=== PATIENT | male | born 1955 | race Caucasian/White ===

== ENCOUNTER 2019-01-21 15:47 | Inpatient (IN) | payer BC ==
--- NOTE | 2019-01-21 16:46 | EDM.PDOC ---
ED HPI GENERAL MEDICAL PROBLEM - General Chief Complaint: Back Pain or Injury Stated Complaint: back pain Time Seen by Provider: 01/21/19 16:14 Source of Information: Reports: Patient History Limitations: Reports: No Limitations - History of Present Illness INITIAL COMMENTS - FREE TEXT/NARRATIVE: Artemio is a 64 yo male who presents to the ED via private vehicle. He is brought in by his as he is unable to sit in a vehicle. He was able to get himself out of the back of the vehicle as he was laying down. He has been dealing with severe back pain since beginning of December. He has no known cause of event. Pain does radiate to right lateral and anterior thigh. Pain is significantly worse upon ambulation. He was initially evaluated by Dr. Zepeda on 01/06/19. Dr. Zepeda did get x-rays of right hip and femur. There was some concern of trochanteric bursitis. Dr. Zepeda did inject the trochanteric bursa without any relief of symptoms. Dr. Zepeda did set up with Dr. Dave in [place]. He underwent an MRI of the hip with hip injection given without any relief. Patient did go to ER at [facility] in [place] where he underwent an MRI of the back. MRI did show severe neuroforaminal stenosis and slipped disc. He underwent an injection in low back without any relief. He states the pain is progressively getting worse and find it very difficult to ambulate. He denies any bowel or bladder dysfunction. Denies any loss of strength. He states he currently is taking Flexeril which does given him minimal relief. He has tried Hydrocodone and Oxycodone without any relief in symptoms. He does admit when he was in the ER in [place] they did give him Valium and Dilaudid which did help. Duration: Getting Worse Location: Reports: Back Associated Symptoms: Reports: No Other Symptoms. Denies: Weakness Lower Back Pain Score (Numeric/FACES): 10 - Related Data Allergies Allergy/AdvReac Type Severity Reaction Status Date / Time No Known Allergies Allergy Verified 01/21/19 15:53 Home Meds: Home Meds Cholecalciferol (Vitamin D3) [Vitamin D] 2,000 unit PO BID 06/18/14 [History] Clotrimazole/Betamethasone Dip [Lotrisone Cream] 1 applic TOP TID PRN 06/18/14 [ History] Rosuvastatin [Crestor] 40 mg PO DAILY 06/18/14 [History] Aspirin 81 mg PO DAILY 01/21/19 [History] Calcium Carb/Mag Ox/Zinc Gluc [Gtjjshw-Sakhsgunz-Zjrt] 1 tab PO BEDTIME [History] Cyclobenzaprine [Flexeril] 10 mg PO TID PRN 01/21/19 [History] Folic Acid 1 mg PO DAILY 01/21/19 [History] Gabapentin [Neurontin] 100 mg PO TID 01/21/19 [History] Levothyroxine 75 mcg PO DAILY 01/21/19 [History] Multivitamin [Multivitamins] 1 tab PO BEDTIME 01/21/19 [History] Naproxen Sodium [Aleve] 220 - 440 mg PO Q6H PRN 01/21/19 [History] Ubidecarenone [Coenzyme Q-10] 75 mg PO DAILY 01/21/19 [History] carBAMazepine [Carbamazepine ER] 400 mg PO BID 01/21/19 [History] oxyCODONE HCl/Acetaminophen [Endocet 10-325 mg Tablet] 1 tab PO Q4H PRN [History] Past Medical History Cardiovascular History: Reports: High Cholesterol Gastrointestinal History: Reports: None Genitourinary History: Reports: Renal Calculus Musculoskeletal History: Reports: Osteoarthritis, Other (See Below) Other Musculoskeletal History: herniated lumbar disc Neurological History: Reports: Other (See Below) Other Neuro History: numbness to right thigh - Past Surgical History HEENT Surgical History: Reports: Other (See Below) Other HEENT Surgeries/Procedures: cornea transplant Cardiovascular Surgical History: Reports: None GI Surgical History: Reports: Appendectomy Male Surgical History: Reports: Ureteral Stent Neurological Surgical History: Reports: None Musculoskeletal Surgical History: Reports: Hip Replacement Social & Family History - Family History Family Medical History: Noncontributory - Tobacco Use Smoking Status *Q: Never Smoker Second Hand Smoke Exposure: No - Caffeine Use Caffeine Use: Reports: None - Recreational Drug Use Recreational Drug Use: No ED ROS GENERAL - Review of Systems Review Of Systems: ROS reveals no pertinent complaints other than HPI. ED EXAM,LOWER BACK PAIN/INJURY - Physical Exam Exam: See Below Exam Limited By: No Limitations General Appearance: Alert, Mild Distress (patient is lying flat on ED bed) Ears: Normal External Exam, Hearing Grossly Normal Nose: Normal Inspection, No Blood Throat/Mouth: Normal Inspection, Normal Oropharynx, Normal Voice, No Airway Compromise Head: Atraumatic, Normocephalic Neck: Normal Inspection, Supple Respiratory/Chest: No Respiratory Distress, Lungs Clear, Normal Breath Sounds, No Accessory Muscle Use Cardiovascular: Normal Peripheral Pulses, Regular Rate, Rhythm, No Edema, No Murmur GI/Abdominal: Normal Bowel Sounds, Soft, Non-Tender, No Organomegaly, No Distention, No Abnormal Bruit, No Mass Back Exam: Decreased Range of Motion, Muscle Spasm, Paraspinal Tenderness. No: CVA Tenderness (L), CVA Tenderness (R) Extremities: Normal Inspection, Normal Range of Motion, Non-Tender, No Pedal Edema, Other (increased discomfort with flexion of right hip agains resistance. ) Neurological: Alert, Normal Dorsiflexion, CN II-XII Intact, Normal Plantar Flexion, Normal Reflexes, Difficulty Walking. No: Straight Leg Raise (R), Saddle Anesthesia Psychiatric: Normal Affect, Normal Mood Skin Exam: Warm, Dry, Intact, Normal Color, No Rash Course - Vital Signs Last Recorded V/S: Last Vital Signs Temp 97.8 F 01/21/19 15:47 Pulse 71 01/21/19 15:47 Resp 20 01/21/19 15:47 BP 122/77 01/21/19 15:47 Pulse Ox 98 01/21/19 15:47 Departure - Departure Time of Disposition: 17:04 Disposition: Refer to Observation Clinical Impression: Neuroforaminal stenosis of lumbar spine, Herniated lumbar intervertebral disc - Discharge Information Referrals: Basil Zepeda MD [Primary Care Provider] - Forms: ED Department Discharge - Problem List & Annotations (1) Herniated lumbar intervertebral disc SNOMED Code(s): 759039602 Code(s): M51.26 - OTHER INTERVERTEBRAL DISC DISPLACEMENT, LUMBAR REGION Status: Acute Current Visit: Yes (2) Neuroforaminal stenosis of lumbar spine SNOMED Code(s): 128565870866, 238806499062 Code(s): M99.83 - OTHER BIOMECHANICAL LESIONS OF LUMBAR REGION Status: Acute Current Visit: Yes - Assessment/Plan Admission H&P: Please use this note as an admission H&P Plan: Consulted with Dr. Zepeda in regards to Artemio's condition. Will admit to Dr. Zepeda' s services under observation for pain control. Will start IV Solu Medrol, IV Toradol and IV Norflex. Discussed with Artemio'katie we will look into referral to neurosurgery as well. He would like to go to [place] if at all possible. He is hoping something can be done soon as he doesn't want to wait any longer.
[2019-01-21] MEDS ORDERED: Ketorolac 30 MG/ML SDV IV PRN (17:28)
[2019-01-21] MEDS ORDERED: oxyCODONE 5 MG Tab PO PRN (17:45)
[2019-01-21] MEDS ORDERED: Acetaminophen/oxyCODONE 325-5 MG Tab PO PRN (17:45)
[2019-01-21] MEDS: HYDROmorphone 1 MG/ML Syringe IVPUSH PRN ×2 (18:36→22:11)
[2019-01-21] MEDS: carBAMazepine 200 MG Tab PO SCH (19:38)
[2019-01-21] MEDS: Enoxaparin 40 MG/0.4 ML Syringe SUBCUT SCH (19:38)
[2019-01-21] MEDS: methylPREDNISolone Sodium Succinate 125 MG/2 ML SDV IVPUSH SCH (19:38)
[2019-01-21] MEDS: GABAPENTIN 100 MG PO SCH (19:50)
[2019-01-21] MEDS ORDERED: Gabapentin 100 MG Cap PO SCH (20:00)
[2019-01-22] MEDS: HYDROmorphone 1 MG/ML Syringe IVPUSH PRN ×7 (01:58→22:55)
[2019-01-22] MEDS: GABAPENTIN 100 MG PO SCH ×3 (08:40→19:58)
[2019-01-22] MEDS: methylPREDNISolone Sodium Succinate 125 MG/2 ML SDV IVPUSH SCH ×2 (08:40→19:55)
[2019-01-22] MEDS: Levothyroxine 50 MCG Tab PO SCH (08:42)
[2019-01-22] MEDS: carBAMazepine 200 MG Tab PO SCH ×2 (08:42→19:45)
[2019-01-22] MEDS: Aspirin 81 MG Tab.Chew PO SCH (08:42)
[2019-01-22] MEDS: Simvastatin 40 MG Tab PO SCH (08:42)
[2019-01-22] MEDS: Folic Acid 1 MG Tab PO SCH (08:42)
[2019-01-22] MEDS ORDERED: FLU Vacc QS2019-20(6MOS UP)/PF 60 MCG/0.5 ML Vial IM ONE (12:15)
[2019-01-22] MEDS: Polyethylene Glycol 3350 Powder 17 GM Packet PO SCH (12:33)
--- NOTE | 2019-01-22 13:51 | PCM.PN ---
- General Info Date of Service: 01/22/19 Admission Dx/Problem (Free Text): Acute low back pain Functional Status: Reports: Pain Controlled (pain controlled if taking meds every 3-4 hours), Tolerating Diet. Denies: Ambulating (not tolerating ambulation well, states starts to have pain after about a minute or so when up) - Review of Systems General: Reports: Weakness HEENT: Reports: No Symptoms Pulmonary: Reports: No Symptoms Cardiovascular: Reports: No Symptoms Gastrointestinal: Reports: Constipation Genitourinary: Reports: No Symptoms Musculoskeletal: Reports: Back Pain Skin: Reports: No Symptoms Neurological: Reports: Weakness Psychiatric: Reports: No Symptoms - Patient Data Vitals - Most Recent: Last Vital Signs Temp 97.4 F 01/22/19 08:00 Pulse 68 01/22/19 08:00 Resp 16 01/22/19 08:00 BP 130/72 01/22/19 08:00 Pulse Ox 98 01/22/19 08:00 Weight - Most Recent: 215 lb 14.4 oz Med Orders - Current: Current Medications Aspirin (Aspirin) 81 mg PO DAILY [facility] Last Admin: 01/22/19 08:42 Dose: 81 mg Carbamazepine (Tegretol Tab) 400 mg PO BID [facility] Last Admin: 01/22/19 08:42 Dose: 400 mg Enoxaparin Sodium (Lovenox) 40 mg SUBCUT BEDTIME [facility] Last Admin: 01/21/19 19:38 Dose: 40 mg Folic Acid (Folic Acid) 1 mg PO DAILY [facility] Last Admin: 01/22/19 08:42 Dose: 1 mg Gabapentin (Neurontin) 100 mg PO TID [facility] Last Admin: 01/22/19 13:23 Dose: 100 mg Hydromorphone HCl (Dilaudid) 0.5 mg IVPUSH Q2H PRN PRN Reason: Pain (severe 7-10) Last Admin: 01/22/19 13:23 Dose: 0.5 mg Ketorolac Tromethamine (Toradol) 30 mg IV Q6H PRN PRN Reason: Pain (moderate 4-6) Last Admin: 01/21/19 17:55 Dose: 30 mg Levothyroxine Sodium (Synthroid) 75 mcg PO ACBREAKFAST [facility] Last Admin: 01/22/19 08:42 Dose: 75 mcg Methylprednisolone Sodium Succinate (Solu-Medrol) 125 mg IVPUSH Q12H [facility] Last Admin: 01/22/19 08:40 Dose: 125 mg Orphenadrine Citrate (Norflex) 60 mg IV Q12H PRN PRN Reason: Spasms Oxycodone HCl (Oxycodone) 5 mg PO Q4H PRN PRN Reason: PAIN Oxycodone/Acetaminophen (Percocet 325-5 Mg) 1 tab PO Q4H PRN PRN Reason: PAIN Polyethylene Glycol (Miralax) 17 gm PO DAILY [facility] Last Admin: 01/22/19 12:33 Dose: 17 gm Simvastatin (Zocor) 80 mg PO DAILY [facility] Last Admin: 01/22/19 08:42 Dose: 80 mg Discontinued Medications Gabapentin (Neurontin) 100 mg PO TID [facility] Influenza Virus Vaccine (Pharmacy To Dose - Influenza Vaccine) 1 each IM ONETIME ONE Stop: 01/22/19 12:09 - Exam General: Alert, Oriented HEENT: Mucous Membr. Moist/[place] Neck: Supple Lungs: Clear to Auscultation, Normal Respiratory Effort Cardiovascular: Regular Rate, Regular Rhythm GI/Abdominal Exam: Normal Bowel Sounds, Soft, Non-Tender Back Exam: Normal Inspection, Decreased Range of Motion, Muscle Spasm Extremities: Normal Inspection Skin: Warm, Dry Neurological: No New Focal Deficit - Problem List & Annotations (1) Herniated lumbar intervertebral disc SNOMED Code(s): 375948273 Code(s): M51.26 - OTHER INTERVERTEBRAL DISC DISPLACEMENT, LUMBAR REGION Status: Acute Priority: High Current Visit: Yes (2) Neuroforaminal stenosis of lumbar spine SNOMED Code(s): 175863396802, 166236871217 Code(s): M99.83 - OTHER BIOMECHANICAL LESIONS OF LUMBAR REGION Status: Acute Priority: High Current Visit: Yes - Problem List Review Problem List Initiated/Reviewed/Updated: Yes - My Orders Last 24 Hours: My Active Orders 01/22/19 12:09 Influenza Vaccine Charge [RC] .DISCHARGE 01/22/19 12:15 Polyethylene Glycol 3350 [MiraLAX] 17 gm PO DAILY - Assessment Assessment:: Acute Low back pain - Plan Plan:: Patient is resting comfortably while in bed. States is getting pain relief with Dilaudid injections but unable to tolerate ambulation or more than a few minutes despite that. Did not feel Toradol helped last evening with his pain. Has had recent hip and lumbar injections without pain relief. Now states is "unable to accomplish anything as can only lay flat on his back". Had recent MRI of hip and back as well. Did forward information to neurosurgical department at [facility] for referral. Will continue Solu Medrol BID. Pain meds as needed. Physical therapy.
[2019-01-22] MEDS: Enoxaparin 40 MG/0.4 ML Syringe SUBCUT SCH (19:55)
[2019-01-23] MEDS: HYDROmorphone 1 MG/ML Syringe IVPUSH PRN ×5 (01:32→15:41)
[2019-01-23] MEDS: Levothyroxine 50 MCG Tab PO SCH (06:27)
[2019-01-23] MEDS: Aspirin 81 MG Tab.Chew PO SCH (07:50)
[2019-01-23] MEDS: Folic Acid 1 MG Tab PO SCH (07:51)
[2019-01-23] MEDS: carBAMazepine 200 MG Tab PO SCH ×2 (07:51→19:20)
[2019-01-23] MEDS: methylPREDNISolone Sodium Succinate 125 MG/2 ML SDV IVPUSH SCH ×2 (07:51→19:20)
[2019-01-23] MEDS: GABAPENTIN 100 MG PO SCH (07:51)
[2019-01-23] MEDS: Polyethylene Glycol 3350 Powder 17 GM Packet PO SCH ×2 (07:51→12:37)
[2019-01-23] MEDS: Simvastatin 40 MG Tab PO SCH (07:52)
[2019-01-23] MEDS ORDERED: Gabapentin 100 MG Cap**OWN MED PO ONE (08:00)
[2019-01-23] MEDS ORDERED: Gabapentin 100 MG Cap**OWN MED PO SCH (14:00)
[2019-01-23] MEDS: HYDROmorphone 2 MG Tab PO PRN ×2 (18:07→22:06)
--- NOTE | 2019-01-23 19:00 | PCM.PN ---
- General Info Date of Service: 01/23/19 Admission Dx/Problem (Free Text): Acute low back pain Functional Status: Reports: Pain Controlled (pain controlled at rest), Tolerating Diet. Denies: Ambulating - Review of Systems General: Reports: Weakness, Fatigue HEENT: Reports: No Symptoms Pulmonary: Denies: Shortness of Breath, Cough Cardiovascular: Denies: Chest Pain, Edema, Lightheadedness Gastrointestinal: Denies: Abdominal Pain, Nausea, Vomiting Genitourinary: Reports: No Symptoms Musculoskeletal: Reports: Back Pain, Leg Pain Skin: Reports: No Symptoms Neurological: Reports: Numbness (right leg), Weakness - Patient Data Vitals - Most Recent: Last Vital Signs Temp 99.9 F 01/23/19 14:22 Pulse 78 01/23/19 14:22 Resp 18 01/23/19 14:22 BP 147/76 H 01/23/19 14:22 Pulse Ox 94 L 01/23/19 14:22 Weight - Most Recent: 215 lb 14.4 oz Med Orders - Current: Current Medications Aspirin (Aspirin) 81 mg PO DAILY [facility] Last Admin: 01/23/19 07:50 Dose: 81 mg Carbamazepine (Tegretol Tab) 400 mg PO BID [facility] Last Admin: 01/23/19 07:51 Dose: 400 mg Enoxaparin Sodium (Lovenox) 40 mg SUBCUT BEDTIME [facility] Last Admin: 01/22/19 19:55 Dose: 40 mg Folic Acid (Folic Acid) 1 mg PO DAILY [facility] Last Admin: 01/23/19 07:51 Dose: 1 mg Gabapentin (Neurontin) 300 mg PO TID [facility] Hydromorphone HCl (Dilaudid) 0.5 mg IVPUSH Q2H PRN PRN Reason: Pain (severe 7-10) Last Admin: 01/23/19 15:41 Dose: 0.5 mg Hydromorphone HCl (Dilaudid) 2 mg PO Q4H PRN PRN Reason: Pain Last Admin: 01/23/19 18:07 Dose: 2 mg Ketorolac Tromethamine (Toradol) 30 mg IV Q6H PRN PRN Reason: Pain (moderate 4-6) Last Admin: 01/21/19 17:55 Dose: 30 mg Levothyroxine Sodium (Synthroid) 75 mcg PO ACBREAKFAST [facility] Last Admin: 01/23/19 06:27 Dose: 75 mcg Methylprednisolone Sodium Succinate (Solu-Medrol) 125 mg IVPUSH Q12H [facility] Last Admin: 01/23/19 07:51 Dose: 125 mg Orphenadrine Citrate (Norflex) 60 mg IV Q12H PRN PRN Reason: Spasms Oxycodone HCl (Oxycodone) 5 mg PO Q4H PRN PRN Reason: PAIN Oxycodone/Acetaminophen (Percocet 325-5 Mg) 1 tab PO Q4H PRN PRN Reason: PAIN Polyethylene Glycol (Miralax) 17 gm PO DAILY [facility] Last Admin: 01/23/19 12:37 Dose: 17 gm Simvastatin (Zocor) 80 mg PO DAILY [facility] Last Admin: 01/23/19 07:52 Dose: 80 mg Discontinued Medications Gabapentin (Neurontin) 100 mg PO TID [facility] Gabapentin (Neurontin) 100 mg PO TID [facility] Last Admin: 01/23/19 07:51 Dose: 100 mg Gabapentin (Neurontin) 200 mg PO ONETIME ONE Stop: 01/23/19 08:01 Last Admin: 01/23/19 13:37 Dose: 200 mg Gabapentin (Neurontin) 300 mg PO TID [facility] Last Admin: 01/23/19 14:17 Dose: 300 mg Influenza Virus Vaccine (Pharmacy To Dose - Influenza Vaccine) 1 each IM ONETIME ONE Stop: 01/22/19 12:09 - Exam General: Alert, Oriented HEENT: Mucous Membr. Moist/[place] Neck: Supple Lungs: Clear to Auscultation, Normal Respiratory Effort Cardiovascular: Regular Rate, Regular Rhythm GI/Abdominal Exam: Normal Bowel Sounds, Soft, Non-Tender Back Exam: Normal Inspection, Decreased Range of Motion, Muscle Spasm, Paraspinal Tenderness (patient has tenderness in right buttock and right hip. ) , Vertebral Tenderness Extremities: Normal Inspection Skin: Warm, Dry Neurological: No New Focal Deficit - Problem List & Annotations (1) Herniated lumbar intervertebral disc SNOMED Code(s): 636967100 Code(s): M51.26 - OTHER INTERVERTEBRAL DISC DISPLACEMENT, LUMBAR REGION Status: Acute Priority: High Current Visit: Yes (2) Neuroforaminal stenosis of lumbar spine SNOMED Code(s): 892899527691, [id number] Code(s): M99.83 - OTHER BIOMECHANICAL LESIONS OF LUMBAR REGION Status: Acute Priority: High Current Visit: Yes - Problem List Review Problem List Initiated/Reviewed/Updated: Yes - My Orders Last 24 Hours: My Active Orders 01/23/19 13:12 Patient Status [ADT] Routine 01/23/19 16:45 HYDROmorphone [Dilaudid] 2 mg PO Q4H PRN 01/23/19 20:00 Gabapentin [Neurontin] 300 mg PO TID - Assessment Assessment:: Acute Low back pain - Plan Plan:: Patient is resting comfortably while in bed. States is getting pain relief with Dilaudid injections but unable to tolerate ambulation or more than a few minutes despite that. Did not feel Toradol helped last evening with his pain. Has had recent hip and lumbar injections without pain relief. Now states is "unable to accomplish anything as can only lay flat on his back". Had recent MRI of hip and back as well. Did forward information to neurosurgical department at [place] for referral. Will continue Solu Medrol BID. Pain meds as needed. Physical therapy. 01-23-2019 Patient admits to pain relief while lying flat on the bed but last night around midnight, getting up "brought me about to his knees". He does admit he gets pain under control with Dilaudid and rest but has difficulty with raising from bed and ambulating. Notes more numbness in leg and pain that now radiates down to his foot. No bowel or bladder concerns. Information received back from [place] neurosurgery, appointment on February 05. Will try to transition patient to oral Dilaudid to allow for home coverage of pain until appointment. Continue steroids yet at this time. Reevaluate discharge potential in am.
[2019-01-23] MEDS: Gabapentin 300 MG Cap PO SCH (19:20)
[2019-01-23] MEDS: Enoxaparin 40 MG/0.4 ML Syringe SUBCUT SCH (19:20)
[2019-01-24] MEDS: HYDROmorphone 2 MG Tab PO PRN ×5 (02:37→20:38)
[2019-01-24] MEDS: Levothyroxine 50 MCG Tab PO SCH (06:54)
[2019-01-24] MEDS ORDERED: HYDROmorphone 2 MG Tab PO STA (08:10)
[2019-01-24] MEDS: Aspirin 81 MG Tab.Chew PO SCH (08:12)
[2019-01-24] MEDS: Gabapentin 300 MG Cap PO SCH ×3 (08:13→20:38)
[2019-01-24] MEDS: Folic Acid 1 MG Tab PO SCH (08:13)
[2019-01-24] MEDS: carBAMazepine 200 MG Tab PO SCH ×2 (08:13→20:39)
[2019-01-24] MEDS: Simvastatin 40 MG Tab PO SCH (08:13)
[2019-01-24] MEDS: Polyethylene Glycol 3350 Powder 17 GM Packet PO SCH (08:13)
[2019-01-24] MEDS: methylPREDNISolone Sodium Succinate 125 MG/2 ML SDV IVPUSH SCH ×2 (08:13→20:39)
--- NOTE | 2019-01-24 17:55 | PCM.PN ---
- General Info Date of Service: 01/24/19 Functional Status: Reports: Tolerating Diet, Ambulating, Other (Still has pain and decreased moblity due to pain) - Review of Systems General: Reports: No Symptoms HEENT: Reports: No Symptoms Pulmonary: Reports: No Symptoms Cardiovascular: Reports: No Symptoms Gastrointestinal: Reports: No Symptoms Genitourinary: Reports: No Symptoms. Denies: Incontinence Musculoskeletal: Reports: Back Pain Skin: Reports: No Symptoms Neurological: Reports: Numbness (RLE to toes) Psychiatric: Reports: No Symptoms - Patient Data Vitals - Most Recent: Last Vital Signs Temp 97.1 F 01/24/19 08:00 Pulse 74 01/24/19 08:00 Resp 18 01/24/19 08:00 BP 156/98 H 01/24/19 08:00 Pulse Ox 100 01/24/19 08:00 Weight - Most Recent: 215 lb 14.4 oz Med Orders - Current: Current Medications Aspirin (Aspirin) 81 mg PO DAILY [facility] Last Admin: 01/24/19 08:12 Dose: 81 mg Carbamazepine (Tegretol Tab) 400 mg PO BID [facility] Last Admin: 01/24/19 08:13 Dose: 400 mg Enoxaparin Sodium (Lovenox) 40 mg SUBCUT BEDTIME [facility] Last Admin: 01/23/19 19:20 Dose: 40 mg Folic Acid (Folic Acid) 1 mg PO DAILY [facility] Last Admin: 01/24/19 08:13 Dose: 1 mg Gabapentin (Neurontin) 300 mg PO TID [facility] Last Admin: 01/24/19 14:00 Dose: 300 mg Hydromorphone HCl (Dilaudid) 0.5 mg IVPUSH Q2H PRN PRN Reason: Pain (severe 7-10) Last Admin: 01/23/19 15:41 Dose: 0.5 mg Hydromorphone HCl (Dilaudid) 4 mg PO Q4H PRN PRN Reason: Pain Last Admin: 01/24/19 16:21 Dose: 4 mg Ketorolac Tromethamine (Toradol) 30 mg IV Q6H PRN PRN Reason: Pain (moderate 4-6) Last Admin: 01/21/19 17:55 Dose: 30 mg Levothyroxine Sodium (Synthroid) 75 mcg PO ACBREAKFAST [facility] Last Admin: 01/24/19 06:54 Dose: 75 mcg Methylprednisolone Sodium Succinate (Solu-Medrol) 125 mg IVPUSH Q12H [facility] Last Admin: 01/24/19 08:13 Dose: 125 mg Orphenadrine Citrate (Norflex) 60 mg IV Q12H PRN PRN Reason: Spasms Oxycodone HCl (Oxycodone) 5 mg PO Q4H PRN PRN Reason: PAIN Oxycodone/Acetaminophen (Percocet 325-5 Mg) 1 tab PO Q4H PRN PRN Reason: PAIN Polyethylene Glycol (Miralax) 17 gm PO DAILY [facility] Last Admin: 01/24/19 08:13 Dose: 17 gm Simvastatin (Zocor) 80 mg PO DAILY [facility] Last Admin: 01/24/19 08:13 Dose: 80 mg Discontinued Medications Gabapentin (Neurontin) 100 mg PO TID [facility] Gabapentin (Neurontin) 100 mg PO TID [facility] Last Admin: 01/23/19 07:51 Dose: 100 mg Gabapentin (Neurontin) 200 mg PO ONETIME ONE Stop: 01/23/19 08:01 Last Admin: 01/23/19 13:37 Dose: 200 mg Gabapentin (Neurontin) 300 mg PO TID [facility] Last Admin: 01/23/19 14:17 Dose: 300 mg Hydromorphone HCl (Dilaudid) 2 mg PO Q4H PRN PRN Reason: Pain Last Admin: 01/24/19 06:54 Dose: 2 mg Hydromorphone HCl (Dilaudid) 2 mg PO NOW STA Stop: 01/24/19 08:11 Last Admin: 01/24/19 08:20 Dose: 2 mg Influenza Virus Vaccine (Pharmacy To Dose - Influenza Vaccine) 1 each IM ONETIME ONE Stop: 01/22/19 12:09 - Exam General: Alert, Oriented, Cooperative Back Exam: Normal Inspection, Decreased Range of Motion (due to pain lumbar), Paraspinal Tenderness (Right lumbar). No: CVA Tenderness (L), CVA Tenderness (R ), Muscle Spasm, Vertebral Tenderness Extremities: Normal Inspection, Normal Range of Motion, No Pedal Edema, Normal Capillary Refill, Leg Pain, Other (Generalized tenderness to right thigh. Pulses +2, cap refill <2 sec, sensory intact. Motor intact, but weak due to pain. ) Peripheral Pulses: 2+: Popliteal (L), Popliteal (R), Posterior Tibial (L), Posterior Tibial (R), Dorsalis Pedis (L), Dorsalis Pedis (R) Skin: Warm, Dry, Intact Neurological: No New Focal Deficit, Reflexes Equal Bilateral, Sensation Intact Psy/Mental Status: Alert, Normal Affect, Normal Mood - Problem List Review Problem List Initiated/Reviewed/Updated: Yes - Assessment Assessment:: Acute Low back pain - Plan Plan:: Patient is resting comfortably while in bed. States is getting pain relief with Dilaudid injections but unable to tolerate ambulation or more than a few minutes despite that. Did not feel Toradol helped last evening with his pain. Has had recent hip and lumbar injections without pain relief. Now states is "unable to accomplish anything as can only lay flat on his back". Had recent MRI of hip and back as well. Did forward information to neurosurgical department at [place] for referral. Will continue Solu Medrol BID. Pain meds as needed. Physical therapy. 01-23-2019 Patient admits to pain relief while lying flat on the bed but last night around midnight, getting up "brought me about to his knees". He does admit he gets pain under control with Dilaudid and rest but has difficulty with raising from bed and ambulating. Notes more numbness in leg and pain that now radiates down to his foot. No bowel or bladder concerns. Information received back from [place] neurosurgery, appointment on February 05. Will try to transition patient to oral Dilaudid to allow for home coverage of pain until appointment. Continue steroids yet at this time. Reevaluate discharge potential in am. 01/24/19 [place] Note This patient reports he is in to much pain to be discharged. They want a second opinion. Called and spoke to Dr. Michael Tobin neurosurgeon at [facility]. He reports he will see the patient in office Sunday at 8:30am. Patient requests to stay here one more night due to pain. Patient reports he currently can not get up due to severe pain that is uncontrolled, intractable and inability to ambulate to the bathroom due to pain. Will cancel discharge and keep admit until tomorrow. Will discharge tomorrow.
--- NOTE | 2019-01-24 19:21 | PCM.PN ---
- General Info Date of Service: 01/24/19 Admission Dx/Problem (Free Text): Acute low back pain Functional Status: Reports: Pain Controlled (pain controlled to a 4 with Dilaudid but did need to increase to 4 mg from 2 mg to see if can get better control), Tolerating Diet. Denies: Ambulating - Review of Systems General: Reports: Weakness, Fatigue, Malaise HEENT: Reports: No Symptoms Pulmonary: Denies: Shortness of Breath, Cough Cardiovascular: Denies: Chest Pain, Edema, Lightheadedness Gastrointestinal: Denies: Abdominal Pain, Nausea, Vomiting Genitourinary: Reports: No Symptoms Musculoskeletal: Reports: Back Pain, Leg Pain Skin: Reports: No Symptoms Neurological: Reports: Weakness - Patient Data Vitals - Most Recent: Last Vital Signs Temp 97.1 F 01/24/19 08:00 Pulse 74 01/24/19 08:00 Resp 18 01/24/19 08:00 BP 156/98 H 01/24/19 08:00 Pulse Ox 100 01/24/19 08:00 Weight - Most Recent: 215 lb 14.4 oz Med Orders - Current: Current Medications Aspirin (Aspirin) 81 mg PO DAILY ON LICENSE OF [facility] Last Admin: 01/24/19 08:12 Dose: 81 mg Carbamazepine (Tegretol Tab) 400 mg PO BID ON LICENSE OF [facility] Last Admin: 01/24/19 08:13 Dose: 400 mg Enoxaparin Sodium (Lovenox) 40 mg SUBCUT BEDTIME ON LICENSE OF [facility] Last Admin: 01/23/19 19:20 Dose: 40 mg Folic Acid (Folic Acid) 1 mg PO DAILY ON LICENSE OF [facility] Last Admin: 01/24/19 08:13 Dose: 1 mg Gabapentin (Neurontin) 300 mg PO TID ON LICENSE OF [facility] Last Admin: 01/24/19 14:00 Dose: 300 mg Hydromorphone HCl (Dilaudid) 0.5 mg IVPUSH Q2H PRN PRN Reason: Pain (severe 7-10) Last Admin: 01/23/19 15:41 Dose: 0.5 mg Hydromorphone HCl (Dilaudid) 4 mg PO Q4H PRN PRN Reason: Pain Last Admin: 01/24/19 16:21 Dose: 4 mg Ketorolac Tromethamine (Toradol) 30 mg IV Q6H PRN PRN Reason: Pain (moderate 4-6) Last Admin: 01/21/19 17:55 Dose: 30 mg Levothyroxine Sodium (Synthroid) 75 mcg PO ACBREAKFAST ON LICENSE OF [facility] Last Admin: 01/24/19 06:54 Dose: 75 mcg Methylprednisolone Sodium Succinate (Solu-Medrol) 125 mg IVPUSH Q12H ON LICENSE OF [facility] Last Admin: 01/24/19 08:13 Dose: 125 mg Orphenadrine Citrate (Norflex) 60 mg IV Q12H PRN PRN Reason: Spasms Oxycodone HCl (Oxycodone) 5 mg PO Q4H PRN PRN Reason: PAIN Oxycodone/Acetaminophen (Percocet 325-5 Mg) 1 tab PO Q4H PRN PRN Reason: PAIN Polyethylene Glycol (Miralax) 17 gm PO DAILY ON LICENSE OF [facility] Last Admin: 01/24/19 08:13 Dose: 17 gm Simvastatin (Zocor) 80 mg PO DAILY ON LICENSE OF [facility] Last Admin: 01/24/19 08:13 Dose: 80 mg Discontinued Medications Gabapentin (Neurontin) 100 mg PO TID ON LICENSE OF [facility] Gabapentin (Neurontin) 100 mg PO TID ON LICENSE OF [facility] Last Admin: 01/23/19 07:51 Dose: 100 mg Gabapentin (Neurontin) 200 mg PO ONETIME ONE Stop: 01/23/19 08:01 Last Admin: 01/23/19 13:37 Dose: 200 mg Gabapentin (Neurontin) 300 mg PO TID ON LICENSE OF [facility] Last Admin: 01/23/19 14:17 Dose: 300 mg Hydromorphone HCl (Dilaudid) 2 mg PO Q4H PRN PRN Reason: Pain Last Admin: 01/24/19 06:54 Dose: 2 mg Hydromorphone HCl (Dilaudid) 2 mg PO NOW STA Stop: 01/24/19 08:11 Last Admin: 01/24/19 08:20 Dose: 2 mg Influenza Virus Vaccine (Pharmacy To Dose - Influenza Vaccine) 1 each IM ONETIME ONE Stop: 01/22/19 12:09 - Exam General: Alert, Oriented HEENT: Mucous Membr. Moist/[place] Neck: Supple Lungs: Clear to Auscultation, Normal Respiratory Effort Cardiovascular: Regular Rate, Regular Rhythm GI/Abdominal Exam: Normal Bowel Sounds, Soft, Non-Tender Back Exam: Normal Inspection, Decreased Range of Motion, Muscle Spasm, Paraspinal Tenderness Extremities: Normal Inspection, No Pedal Edema Skin: Warm, Dry Neurological: No New Focal Deficit - Problem List & Annotations (1) Herniated lumbar intervertebral disc SNOMED Code(s): 019151221 Code(s): M51.26 - OTHER INTERVERTEBRAL DISC DISPLACEMENT, LUMBAR REGION Status: Acute Priority: High Current Visit: Yes (2) Neuroforaminal stenosis of lumbar spine SNOMED Code(s): 908434109221, 575192235456 Code(s): M99.83 - OTHER BIOMECHANICAL LESIONS OF LUMBAR REGION Status: Acute Priority: High Current Visit: Yes - Problem List Review Problem List Initiated/Reviewed/Updated: Yes - My Orders Last 24 Hours: My Active Orders 01/23/19 20:00 Gabapentin [Neurontin] 300 mg PO TID 01/24/19 08:09 HYDROmorphone [Dilaudid] 4 mg PO Q4H PRN 01/24/19 13:29 Ready for Discharge [RC] PER UNIT ROUTINE - Assessment Assessment:: Acute Low back pain - Plan Plan:: Patient is resting comfortably while in bed. States is getting pain relief with Dilaudid injections but unable to tolerate ambulation or more than a few minutes despite that. Did not feel Toradol helped last evening with his pain. Has had recent hip and lumbar injections without pain relief. Now states is "unable to accomplish anything as can only lay flat on his back". Had recent MRI of hip and back as well. Did forward information to neurosurgical department at [facility] for referral. Will continue Solu Medrol BID. Pain meds as needed. Physical therapy. 01-23-2019 Patient admits to pain relief while lying flat on the bed but last night around midnight, getting up "brought me about to his knees". He does admit he gets pain under control with Dilaudid and rest but has difficulty with raising from bed and ambulating. Notes more numbness in leg and pain that now radiates down to his foot. No bowel or bladder concerns. Information received back from [facility] neurosurgery, appointment on February 05. Will try to transition patient to oral Dilaudid to allow for home coverage of pain until appointment. Continue steroids yet at this time. Reevaluate discharge potential in am. 01-24-2019 Patient continues to have variable pain. Rests comfortably on his back and does try to do range of motion some in the bed but still continues to have pain with getting up to bathroom. Is transferring per self but only able to tolerate for short time. Does not feel Dilaudid oral is as good of coverage as IV was. Have tripled the gabapentin dose as well. He is voiding well. Appetite is good. Will increase Dilaudid to 4 mg every 4 hours. Continue IV as back up if needed. Did discuss possible discharge with patient if able to tolerate increase dose and be more mobile. Continue physical therapy.
[2019-01-24] MEDS: Enoxaparin 40 MG/0.4 ML Syringe SUBCUT SCH (20:38)
[2019-01-25] MEDS: HYDROmorphone 2 MG Tab PO PRN ×2 (00:45→04:46)
[2019-01-25] MEDS: Levothyroxine 50 MCG Tab PO SCH (07:12)
[2019-01-25] MEDS: Aspirin 81 MG Tab.Chew PO SCH (07:54)
[2019-01-25] MEDS: Gabapentin 300 MG Cap PO SCH (07:54)
[2019-01-25] MEDS: Polyethylene Glycol 3350 Powder 17 GM Packet PO SCH (07:54)
[2019-01-25] MEDS: methylPREDNISolone Sodium Succinate 125 MG/2 ML SDV IVPUSH SCH (07:54)
[2019-01-25] MEDS: Simvastatin 40 MG Tab PO SCH (07:54)
[2019-01-25] MEDS: carBAMazepine 200 MG Tab PO SCH (07:54)
[2019-01-25] MEDS: Folic Acid 1 MG Tab PO SCH (07:54)
--- NOTE | 2019-01-25 09:17 | PCM.DCSUM1 ---
Discharge Summary - Hospital Course HPI Initial Comments: This patient is a 64 year old admitted for lower back pain and pain to the right lower extremity. Pain continues to have pain, but has appointment with neurosurgeon at [facility] Sunday morning. Patient reports pain is some better here today. Numbness to RLE. Will discharge today. Diagnosis: Stroke: No Modified [place] Scale: No Symptoms at All Modified [place] Scale Score: 0 - Discharge Data Discharge Date: 01/25/19 Discharge Disposition: Home, Self-Care 01 Condition: Fair - Referral to Home Health Primary Care Physician: Basil Zepeda MD - Patient Summary/Data Consults: Consultations 01/21/19 17:28 PT Evaluation and Treatment [CONS] Routine - Patient Instructions Diet: Usual Diet as Tolerated Activity: As Tolerated Other/Special Instructions: Keep scheduled appointment with [facility] on February 05 at 915 am - Discharge Plan *PRESCRIPTION DRUG MONITORING PROGRAM REVIEWED*: No *COPY OF PRESCRIPTION DRUG MONITORING REPORT IN PATIENT KANE: No Prescriptions/Med Rec: Gabapentin [Neurontin] 300 mg PO TID #90 cap HYDROmorphone [Dilaudid] 4 mg PO Q4H PRN #60 tablet PRN Reason: Pain Polyethylene Glycol 3350 [MiraLAX] 17 gm PO DAILY #30 packet Home Medications: Home Meds Cholecalciferol (Vitamin D3) [Vitamin D3] 2,000 unit PO BID 06/18/14 [History] Clotrimazole/Betamethasone Dip [Lotrisone Cream] 1 applic TOP TID PRN 06/18/14 [ History] Rosuvastatin [Crestor] 40 mg PO DAILY 06/18/14 [History] Aspirin 81 mg PO DAILY 01/21/19 [History] Calcium Carb/Mag Ox/Zinc Gluc [Cmfdlpe-Lmedlsquh-Lyhi] 1 tab PO BEDTIME [History] Cyclobenzaprine [Flexeril] 10 mg PO TID PRN 01/21/19 [History] Folic Acid 1 mg PO DAILY 01/21/19 [History] Gabapentin [Neurontin] 100 mg PO TID 01/21/19 [History] Levothyroxine 75 mcg PO DAILY 01/21/19 [History] Multivitamin [Multivitamins] 1 tab PO BEDTIME 01/21/19 [History] Naproxen Sodium [Aleve] 220 - 440 mg PO Q6H PRN 01/21/19 [History] Ubidecarenone [Coenzyme Q-10] 75 mg PO DAILY 01/21/19 [History] carBAMazepine [Carbamazepine ER] 400 mg PO BID 01/21/19 [History] Gabapentin [Neurontin] 300 mg PO TID #90 cap 01/24/19 [Rx] HYDROmorphone [Dilaudid] 4 mg PO Q4H PRN #60 tablet 01/24/19 [Rx] Polyethylene Glycol 3350 [MiraLAX] 17 gm PO DAILY #30 packet 01/24/19 [Rx] Forms: ED Department Discharge Referrals: Basil Zepeda MD [Primary Care Provider] - - Discharge Summary/Plan Comment DC Time >30 min.: No Discharge Summary/Plan Comment: See Neurosurgeon at 8:30am [facility] Sunday Return for emergencies - General Info Functional Status: Reports: Pain Controlled (improving on pain medication), Tolerating Diet, Ambulating, Urinating - Review of Systems General: Reports: No Symptoms Pulmonary: Reports: No Symptoms Cardiovascular: Reports: No Symptoms Gastrointestinal: Reports: No Symptoms Genitourinary: Reports: No Symptoms. Denies: Incontinence Musculoskeletal: Reports: Back Pain (lumbar), Leg Pain (RLE) Skin: Reports: No Symptoms Neurological: Reports: No Symptoms Psychiatric: Reports: No Symptoms - Patient Data Vitals - Most Recent: Last Vital Signs Temp 98.7 F 01/24/19 20:00 Pulse 70 01/24/19 20:00 Resp 16 01/24/19 20:00 BP 150/78 H 01/24/19 20:00 Pulse Ox 97 01/24/19 20:00 Weight - Most Recent: 215 lb 14.4 oz Med Orders - Current: Current Medications Aspirin (Aspirin) 81 mg PO DAILY [facility] Last Admin: 01/25/19 07:54 Dose: 81 mg Carbamazepine (Tegretol Tab) 400 mg PO BID [facility] Last Admin: 01/25/19 07:54 Dose: 400 mg Enoxaparin Sodium (Lovenox) 40 mg SUBCUT BEDTIME [facility] Last Admin: 01/24/19 20:38 Dose: 40 mg Folic Acid (Folic Acid) 1 mg PO DAILY [facility] Last Admin: 01/25/19 07:54 Dose: 1 mg Gabapentin (Neurontin) 300 mg PO TID [facility] Last Admin: 01/25/19 07:54 Dose: 300 mg Hydromorphone HCl (Dilaudid) 0.5 mg IVPUSH Q2H PRN PRN Reason: Pain (severe 7-10) Last Admin: 01/23/19 15:41 Dose: 0.5 mg Hydromorphone HCl (Dilaudid) 4 mg PO Q4H PRN PRN Reason: Pain Last Admin: 01/25/19 04:46 Dose: 4 mg Ketorolac Tromethamine (Toradol) 30 mg IV Q6H PRN PRN Reason: Pain (moderate 4-6) Last Admin: 01/21/19 17:55 Dose: 30 mg Levothyroxine Sodium (Synthroid) 75 mcg PO ACBREAKFAST [facility] Last Admin: 01/25/19 07:12 Dose: 75 mcg Methylprednisolone Sodium Succinate (Solu-Medrol) 125 mg IVPUSH Q12H [facility] Last Admin: 01/25/19 07:54 Dose: 125 mg Orphenadrine Citrate (Norflex) 60 mg IV Q12H PRN PRN Reason: Spasms Oxycodone HCl (Oxycodone) 5 mg PO Q4H PRN PRN Reason: PAIN Oxycodone/Acetaminophen (Percocet 325-5 Mg) 1 tab PO Q4H PRN PRN Reason: PAIN Polyethylene Glycol (Miralax) 17 gm PO DAILY [facility] Last Admin: 01/25/19 07:54 Dose: 17 gm Simvastatin (Zocor) 80 mg PO DAILY [facility] Last Admin: 01/25/19 07:54 Dose: 80 mg Discontinued Medications Gabapentin (Neurontin) 100 mg PO TID [facility] Gabapentin (Neurontin) 100 mg PO TID [facility] Last Admin: 01/23/19 07:51 Dose: 100 mg Gabapentin (Neurontin) 200 mg PO ONETIME ONE Stop: 01/23/19 08:01 Last Admin: 01/23/19 13:37 Dose: 200 mg Gabapentin (Neurontin) 300 mg PO TID [facility] Last Admin: 01/23/19 14:17 Dose: 300 mg Hydromorphone HCl (Dilaudid) 2 mg PO Q4H PRN PRN Reason: Pain Last Admin: 01/24/19 06:54 Dose: 2 mg Hydromorphone HCl (Dilaudid) 2 mg PO NOW STA Stop: 01/24/19 08:11 Last Admin: 01/24/19 08:20 Dose: 2 mg Influenza Virus Vaccine (Pharmacy To Dose - Influenza Vaccine) 1 each IM ONETIME ONE Stop: 01/22/19 12:09 - Exam General: Reports: Alert, Oriented, Cooperative, No Acute Distress Lungs: Reports: Clear to Auscultation, Normal Respiratory Effort Cardiovascular: Reports: Regular Rate, Regular Rhythm, No Murmurs Back Exam: Reports: Normal Inspection, Full Range of Motion. Denies: CVA Tenderness (L), CVA Tenderness (R), Decreased Range of Motion, Muscle Spasm, Paraspinal Tenderness, Vertebral Tenderness Extremities: Normal Inspection, Normal Range of Motion, No Pedal Edema, Normal Capillary Refill, Other (RIght thigh tenderness) Skin: Reports: Warm, Dry, Intact Neurological: Reports: No New Focal Deficit, Normal Gait, Normal Speech, Strength Equal Bilateral, Reflexes Equal Bilateral, Sensation Intact Psy/Mental Status: Reports: Alert, Normal Affect, Normal Mood
[2019-01-25] MEDS: HYDROmorphone 1 MG/ML Syringe IVPUSH PRN (10:00)
[2019-01-25 15:43] VITALS: BP 137/88; PULSE 74
== END 2019-01-25 10:00 | disposition home or self-care (01) | DRG 347 ==
LOC: CC.ED 15:47 → UNDOADMOB 17:00 → CC.MS 17:00 → OBSVTOIN 01-23 13:12
PROVIDERS: ADMIT Physician Assistant Medical; ATTEND Family Medicine
DX: M51.26 Other intervertebral disc displacement, lumbar region (principal); M48.061 Spinal stenosis, lumbar region without neurogenic claudication; E78.00 Pure hypercholesterolemia, unspecified; M19.90 Unspecified osteoarthritis, unspecified site; Z87.442 Personal history of urinary calculi; Z90.49 Acquired absence of other specified parts of digestive tract; Z79.890 Hormone replacement therapy; Z79.82 Long term (current) use of aspirin; Z79.899 Other long term (current) drug therapy; Z96.649 Presence of unspecified artificial hip joint
CPT/HCPCS: 90686; 96372; 96374; 96375; 96376; 97161-GP; 99284; A9270-GY; G0008; G0378; J1170; J1650; J1885; J2930

== ENCOUNTER → 2019-04-04 | Day surgery (SDC) | payer BC ==
[~2019-04-04] MED LIST: Lactated Ringers 1,000 ML IV SCH
[2019-04-04 11:03] VITALS: BP 119/69; PULSE 70
--- NOTE | 2019-04-04 14:12 | OR ---
DATE OF OPERATION: 04/04/2019 PREOPERATIVE DIAGNOSIS: 1. FAMILY HISTORY OF COLON CARCINOMA. 2. HISTORY OF POLYPS. POSTOPERATIVE DIAGNOSIS: 1. FAMILY HISTORY OF COLON CARCINOMA. 2. HISTORY OF POLYPS. SURGEON: Basil Zepeda MD PROCEDURE: DIAGNOSTIC COLONOSCOPY WITH FORCEPS POLYP REMOVAL X1. ANESTHESIA: MAC. COMPLICATIONS: None. SPECIMEN: Small sessile polyp, hepatic flexure. FINDINGS: 1. Full-length colonoscopy. 2. Tubular adenoma, hepatic flexure, less than 0.5 cm. RECOMMENDATIONS: Followup colonoscopy in 5 years. INDICATIONS: The patient has a family history of colon cancer. Last scope was 5 years ago which had 1 polyp. He is due for a routine followup. DESCRIPTION OF PROCEDURE: The patient was prepped and draped, placed in the left lateral decubitus position. A lubricated Olympus colonoscope was inserted and easily advanced to the cecum. Direct visualization of the ileocecal valve and appendiceal orifice was accomplished. The bowel prep was adequate. Upon withdrawal, the cecum and ascending colon were benign. Right at the hepatic flexure, the patient had a small, flat sessile polyp removed in its entirety with a forceps. It was about 3 to 4 mm. The rest of the transverse and descending colons were unremarkable. Throughout the sigmoid and rectosigmoid region, there were no further polyps, masses, ulceration, or bleeding sites. No vascular abnormalities or signs of diverticula. The rectal vault was benign. Retroflexion of the scope in the rectum showed no anal lesions. Air was suctioned, scope removed without complication. SUBHA/DAVID /[id number]
== END ==
LOC: CC.SDS 08:26
PROVIDERS: ATTEND Family Medicine
DX: Z12.11 Encounter for screening for malignant neoplasm of colon (principal); D12.3 Benign neoplasm of transverse colon; E78.5 Hyperlipidemia, unspecified; E03.9 Hypothyroidism, unspecified; E55.9 Vitamin D deficiency, unspecified; G47.33 Obstructive sleep apnea (adult) (pediatric); M19.90 Unspecified osteoarthritis, unspecified site; Z86.010 Personal history of colon polyps; Z80.0 Family history of malignant neoplasm of digestive organs; Z79.82 Long term (current) use of aspirin; Z79.899 Other long term (current) drug therapy; Z99.89 Dependence on other enabling machines and devices
CPT/HCPCS: 45380; J7120

== ENCOUNTER 2024-05-02 09:12 | Day surgery (SDC) | payer MEDICARE, BC ==
[2024-05-02] MEDS: Lactated Ringers 1,000 ML IV SCH (09:31)
[2024-05-02] MEDS ORDERED: Lidocaine 1% with EPINEPHrine 1:100,000 20 ML MDV ONE (09:44)
[2024-05-02] MEDS ORDERED: Lidocaine 1% 30 ML SDV ONE (09:44)
[2024-05-02] MEDS ORDERED: Lidocaine 2% with EPINEPHrine 1:100,000 20 ML MDV ONE (09:44)
[2024-05-02] MEDS ORDERED: fentaNYL 50 MCG/ML SDV ONE (09:45)
[2024-05-02] MEDS ORDERED: Midazolam 1 MG/ML 2 ML SDV ONE (09:45)
[2024-05-02] MEDS ORDERED: Ketamine 200 MG/20 ML MDV ONE (09:45)
[2024-05-02] MEDS ORDERED: Propofol 200 MG/20 ML SDV ONE (09:45)
[2024-05-02] MEDS ORDERED: Lidocaine 1% with EPINEPHrine 1:100,000 20 ML MDV INJECT ONE (10:00)
[2024-05-02] MEDS: Lidocaine 1% with EPINEPHrine 1:100,000 20 ML MDV INJECT ONE (10:00)
[2024-05-02 11:05] VITALS: BP 120/59; PULSE 55
== END 2024-05-02 11:07 | disposition home or self-care (01) ==
LOC: CC.SDS 09:12
PROVIDERS: ATTEND Family Medicine
DX: D17.1 Benign lipomatous neoplasm of skin and subcutaneous tissue of trunk (principal); E78.5 Hyperlipidemia, unspecified; E03.9 Hypothyroidism, unspecified; Z79.890 Hormone replacement therapy; Z79.899 Other long term (current) drug therapy
CPT/HCPCS: 00400; 88304; J2250; J2704; J3010; J3490; J7120

== ENCOUNTER 2025-03-06 08:37 | Day surgery (SDC) | payer MEDICARE, BC ==
[2025-03-06] MEDS: Lactated Ringers 1,000 ML IV SCH (09:03)
[2025-03-06] MEDS ORDERED: Midazolam 1 MG/ML 2 ML SDV ONE (09:10)
[2025-03-06] MEDS ORDERED: Ketamine 200 MG/20 ML MDV ONE (09:10)
[2025-03-06] MEDS ORDERED: Propofol 200 MG/20 ML SDV ONE (09:10)
[2025-03-06] MEDS ORDERED: fentaNYL 50 MCG/ML SDV ONE (09:10)
[2025-03-06 10:26] VITALS: BP 120/53; PULSE 60
== END 2025-03-06 10:15 | disposition home or self-care (01) ==
LOC: CC.SDS 08:37
PROVIDERS: ATTEND Family Medicine
DX: Z12.11 Encounter for screening for malignant neoplasm of colon (principal); D12.2 Benign neoplasm of ascending colon; G47.30 Sleep apnea, unspecified; E78.5 Hyperlipidemia, unspecified; Z86.0100 Personal history of colon polyps, unspecified; Z80.0 Family history of malignant neoplasm of digestive organs; Z79.899 Other long term (current) drug therapy
CPT/HCPCS: 00811; 45380; 88305; J2250; J2704; J3010; J3490; J7120